=== PATIENT | female | born 1925 | race Caucasian/White ===

== ENCOUNTER → 2016-04-19 | Outpatient (CLI) | payer MEDICARE, BC ==
[~2016-04-19] MED LIST: AMLO5TAB4 PO; METO-53 PO; WARF4TAB PO
--- NOTE | 2016-04-19 19:52 | HKNOTE ---
DATE OF SERVICE: The patient comes in with her nephew Mr. Arriaga for further discussions about her situation. Mr. Roseanne donohue had previously called me and we had a very long half an hour discussion on the phone about her situation. He agreed at the time that he would come in with her and tried to "talk sense into her a nd keep her calm." The wound continues to drain. The sinogram shows that the sinus in her thigh indeed tracks all the way back into her hip joint. Note that the patient removed her wound VAC immediately after she left the office the last time (the next day). She has continued to change the dressings on a daily basi s aided by the visiting nurse. She has no pain in the hip. The patient continues to be febrile. The dressings were changed today and there is considerable drainage coming from the sinus and the dr romo now is no longer clear like water but in fact looks more like pus. New cultures are obtained today and a new dressing was applied. The sinogram was discussed with her and with her nephew. Note that the patient is as aggressive and opinionated as she was the previou s time, probably even worse. No issue was discussed without her waging combat with me. For example , I wanted to get a culture from the wound and I had to pretty much beg her for a few minutes before she would allow me to. I changed the dressing, she did not like the type dressing. I offered to sol pollard on a new wound VAC, she did not want the wound VAC. We discussed what would happen if she does n ot have the wound VAC which basically is that if the sinus continues to drain sooner or later the hi p is going to get infected, which would mean that she would have to have a complete 2-stage revision of her hip. All of this was explained to her nephew Mr. Arriaga. Mr. Arriaga was able to observe at firsthand the tremendous combativeness of this patient. They were advised that if the culture comes back positive for infection that she will need a 2-stage revision of the hip. I most certainly will not tackle this. I do not do any revision surgery at t his time and I doubt that my partner will have anything to do with her because she previously abando eyal him after he performed one hip replacement on her on the opposite side, so they will essentially need to find some other surgeon. Mr. Arriaga was given the name of an orthopedic surgeon who practi [facility] and specializes in hip infections. Patient will not be seen by me again under any circ umstances. Dictated By: LEESA HESTER/JESUS Conf#: [id number] DID#: [id number]
== END | disposition home or self-care (01) ==
LOC: HKI 14:45
DX: T81.4XXD Infection following a procedure, subsequent encounter (principal); F91.1 Conduct disorder, childhood-onset type; Z96.643 Presence of artificial hip joint, bilateral
CPT/HCPCS: G0463